=== PATIENT | male | born 1995 | race Caucasian/White ===

== ENCOUNTER → 2020-06-14 14:20 | Outpatient (BNVA) | payer MEDICAID, SELFPAY | PROVIDERS: PCP Internal Medicine; Referring Provider Internal Medicine; Visit Provider Nurse Practitioner Family | DX: K59.00 Constipation, unspecified (principal); K64.9 Unspecified hemorrhoids; R12 Heartburn | CPT/HCPCS: 99203 ==

== ENCOUNTER → 2020-10-22 15:29 | Outpatient (BNVA) | payer MEDICAID, SELFPAY | PROVIDERS: PCP Internal Medicine; Visit Provider Nurse Practitioner Family ==

== ENCOUNTER → 2020-11-05 13:49 | Outpatient (BNVA) | payer MEDICAID, SELFPAY | PROVIDERS: PCP Internal Medicine; Visit Provider Nurse Practitioner Family ==

== ENCOUNTER 2020-11-06 13:25 | Emergency (ER) | payer MEDICAID, SELFPAY ==
--- NOTE | ~2020-11-06 | CT_ITS ---
EXAMINATION: CT ABDOMEN AND PELVIS WITH CONTRAST CLINICAL INFORMATION: Pain left abdomen and flank. History constipation. COMPARISON: CT abdomen and pelvis noncontrast 09/29/2019 TECHNIQUE: Multidetector volumetric images were obtained from the superior aspect of the liver through the pubic symphysis following administration 85 mL of Omnipaque 350 intravenous contrast. Sagittal and coronal reformatted images were obtained on the technologist's workstation. Oral contrast: No This CT examination was performed using dose optimization techniques as appropriate, variously including the following: *Automated exposure control *Adjustment of mA and/or kV according to patient size (this includes techniques or standardized protocols for targeted exams where dose is matched to indication/reason for exam; i.e. extremities or head) *Use of iterative reconstruction technique DLP: 904 mGy-cm FINDINGS: LUNG BASES: The visualized lung bases are unremarkable. LIVER, GALLBLADDER, AND BILIARY TREE: The liver is normal in size, shape, and attenuation. No focal hepatic lesion or biliary ductal dilatation is present. The gallbladder is unremarkable with no evidence of radiopaque gallstones, gallbladder wall thickening, or obvious pericholecystic inflammatory changes. PANCREAS: Unremarkable. SPLEEN: Unremarkable. ADRENAL GLANDS: Unremarkable. KIDNEYS AND URETERS: The kidneys are normal in size, shape, and attenuation. No hydronephrosis, hydroureter, or calculi seen. No perinephric stranding. BLADDER: Unremarkable. GASTROINTESTINAL TRACT: There is no bowel obstruction or inflammatory changes in the bowel or mesentery. The appendix is normal. There is no ascites or fluid collection. ABDOMINAL WALL: No significant hernia is appreciated. LYMPH NODES: No lymphadenopathy. VASCULAR: Unremarkable. PELVIC VISCERA: Unremarkable. OSSEOUS STRUCTURES: No acute bony abnormality. 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 CT/CT abdomen pelvis w con IMPRESSION: 1. No hydronephrosis, urinary tract calculi, or perinephric stranding. 2. No bowel obstruction or inflammatory changes in bowel or mesentery. 3. Transitional vertebrae L5 with left hemisacralization. No acute bony abnormality.
[2020-11-06 13:51] VITALS: BP 130/79; PULSE 92; RESP 18; TEMP 36.8; O2SAT 97; BMI 32.3
[2020-11-06] MEDS: Ketorolac Tromethamine 30 MG/ML VIAL IVPUSH (14:55)
[2020-11-06] MEDS: 0.9 % Sodium Chloride 1,000 ML 999 ML IVCONT (14:55)
[2020-11-06 14:56] LABS: MANUAL DIFF FLAG NO
[2020-11-06 14:58] LABS: Basophils Percent Auto 0.3 % (0-2); Eosinophils Absolute Auto 0.1 X10*3/uL (0.0-0.4); Hematocrit 42.4 % (42-52); Imm Gran Abs Auto 0.01 X10*3/uL (0.00-0.03); Imm Gran Pct Auto 0.2 % (0.0-0.4); Lymphocytes Absolute Auto 1.4 X10*3/uL (1.2-4.9); Lymphocytes Percent Auto 23.2 % (20-40); Mean Corpuscular Hemoglobin 28.1 pg (27.0-33.0); Mean Corpuscular Volume 85.1 fL (80-98); Mean Platelet Volume 9.6 fL (9.4-12.4); Monocytes Absolute Auto 0.3 X10*3/uL (0.1-1.2); Monocytes Percent Auto 5.5 % (2-11); Neutrophils Absolute Auto 4.1 X10*3/uL (2.0-8.3); Neutrophils Percent Auto 69.8 % (45-73); Platelet Count 241 X10*3/uL (160-400); Red Blood Count 4.98 X10*6/uL (4.60-5.80); Red Cell Distribution Width 12.5 % (11.0-16.0); White Blood Count 5.8 X10*3/uL (4.8-10.8)
--- NOTE | 2020-11-06 14:58 | ED.ABDPAIN ---
HPI - Abdominal Pain General Chief Complaint: Abdominal Pain Stated Complaint: abdominal pain Time Seen by Provider: 11/06/20 13:56 Source: patient Mode of arrival: ambulatory Limitations: no limitations History of Present Illness HPI narrative: 25-year-old male with a past medical history of constipation and hemorrhoids being followed by GI presenting to the ED with complaints of left-sided flank/left side abdominal pain with distention over the past 4 days worse today. Reports he was able to have a bowel movement this morning. Denies any fevers, nausea/vomiting, radiation of the abdominal pain, dysuria, hematuria, diarrhea or constipation. Denies any other symptoms MD elicited complaint: abdominal pain Pertinent past history: constipation and other (Hemorrhoids) Onset (ago): day(s) (4 days worse today) Pain Consistency: now resolved Location: LLQ, L flank and suprapubic Severity: moderate Quality: aching Radiation: none Migration to: no migration Exacerbating factors: movement Relieving factors: nothing Associated symptoms: denies other symptoms Related Data Home Medications Medication Instructions Recorded Confirmed cholecalciferol (vitamin D3) 25 25 mcg PO DAILY 06/14/20 06/14/20 mcg (1,000 unit) capsule ibuprofen 600 mg tablet 600 mg PO BID tab 06/14/20 06/14/20 Previous Rx's Medication Instructions Recorded docusate sodium 100 mg capsule 100 mg PO BID PRN #30 cap 10/22/20 hydrocortisone 2.5 % topical cream [address] QID PRN #30 g 10/22/20 with perineal applicator methylcellulose (laxative) 500 mg 500 mg PO DAILY #30 tab 10/22/20 tablet linaclotide 145 mcg capsule 145 mcg PO DAILY #30 cap 11/05/20 cyclobenzaprine 10 mg PO Q8H #10 tab 11/06/20 naproxen 500 mg PO BID PRN #10 tab 11/06/20 Allergies Allergy/AdvReac Type Severity Reaction Status Date / Time No Known Allergies Allergy Verified 11/05/20 13:49 [No Known Allergies*] Review of Systems Review of Systems Constitutional : + Decreased appetite, + weight loss unsure amount, No Fever, No Chills, No Night Sweats, No Fatigue, NoMalaise ENT/Mouth: No ear pain, No sore throat, No Difficulty swallowing Cardiovascular : No Chest Pain, No SOB, No Dyspnea on Exertion, No Orthopnea, NoEdema, No Palpitations Respiratory : No Cough, No Sputum, No Wheezing, No Dyspnea Gastrointestinal : + Abdominal pain, No Nausea, No Vomiting, No Diarrhea, No Hematochezia, No Melena Genitourinary : No irregular bleeding, No Dysuria, No Urinary Frequency, No Hematuria,No Urinary Incontinence, No Urgency, No Flank Pain Musculoskeletal : No joint pain, No Myalgias, No Joint Swelling Skin : No Skin Lesions, No rash Neuro : No Weakness, No Numbness, No Paresthesias, No Loss of Consciousness, No Dizziness, No Headache Psych : No Social Issues, Heme/Lymph: No Bruising, No Bleeding,No Lymphadenopathy Endocrine : No Polyuria, No Polydipsia, No Temperature Intolerance Yes all other systems are reviewed and are negative Physical Exam Vital Signs: Vital Signs: Last Vital Signs Temp 98.2 F 11/06/20 13:51 Pulse 91 11/06/20 16:10 Resp 16 11/06/20 16:10 BP 145/72 H 11/06/20 16:10 Pulse Ox 100 11/06/20 16:10 Body Mass Index 32.3 vital signs have been reviewed as normal and appeared to be correct. Blood pressure normal. Heart rate normal. Respiration rate normal. Temperature normal. Oxygen saturation normal. Appearance: Alert. Oriented X3. No acute distress. Head: Normal external exam. Normocephalic. Eyes: PERRLA. EOMI. Conjunctiva and sclera normal. Eyelids normal. ENT: Pharynx normal. Uvula midline. Moist mucous membranes. Neck: Normal inspection. Neck supple. FROM. No adenopathy. No meningeal signs. CVS: Normal heart rate and rhythm. Heart sound normal. No murmurs noted. Pulses normal throughout. Respiratory: No respiratory distress. Painless inspiration. Breath sounds normal. No wheezes/rales/rhonchi noted. Chest nontender. No accessory muscle usage noted or decreased air movement noted. Abdomen: Soft and mild tenderness to palpation to left lower quadrant/left flank. Nondistended. No guarding. No rigidity. Bowel sounds normal in all 4 quadrants. No distention noted. No organomegaly noted. No visible injury noted. No rebound tenderness. Negative Rovsing sign. Negative obturator's sign. Negative psoas sign. Negative Bojorquez sign. Back: No CVA tenderness. Full range of motion noted. Skin: Skin warm and dry. Normal skin color. Normal skin turgor. No rashes/lesions/lacerations noted. Extremities: Extremities exhibit normal range of motion. Extremities nontender. Neuro: Oriented X 3. No motor deficit. No sensory deficit. Reflexes normal. Course Course Course Narrative: 14:15pm - 25-year-old male with a past medical history of constipation and hemorrhoids being followed by GI presenting to the ED with complaints of left-sided flank/left side abdominal pain with distention over the past 4 days worse today. - concern for diverticulitis versus kidney stones - Plan: Labs, CT scan of abd/pelvis c IV contrast, UA, provide symptomatic treatment with Toradol and IV fluids and re-evaluate. Reevaluation(s) Reevaluation #1: - labs all within normal limits. UA within normal limits. CT scan of abdomen and pelvis with IV contrast within normal limits no acute processes noted. Patient most likely muscular strain. Will DC home with symptomatic treatment along with instructions to return if any new or worsening symptoms to follow up with primary care provider and GI specialist. Patient understands agrees with this plan. Time: 16:56 [facility] - Abdominal Pain Medical Records Attestation: I reviewed the patient's medical records. Lab Data Attestation: I reviewed the patient's lab results. Result diagrams: 11/06/20 14:48 11/06/20 14:48 Labs: Lab Results 11/06/20 11/06/20 11/06/20 Range/Units 14:48 14:48 14:48 WBC 5.8 (4.8-10.8) X10*3/uL RBC 4.98 (4.60-5.80) X10*6/uL Hgb 14.0 (14.0-18.0) g/dl Hct 42.4 (42-52) % MCV 85.1 (80-98) fL MCH 28.1 (27.0-33.0) pg MCHC 33.0 (31.0-36.0) g/dl RDW 12.5 (11.0-16.0) % Plt Count 241 (160-400) X10*3/uL MPV 9.6 (9.4-12.4) fL Immature Gran % (Auto) 0.2 (0.0-0.4) % Neut % (Auto) 69.8 (45-73) % Lymph % (Auto) 23.2 (20-40) % Worth % (Auto) 5.5 (2-11) % Eos % (Auto) 1.0 (0-4) % Baso % (Auto) 0.3 (0-2) % Lymph # (Auto) 1.4 (1.2-4.9) X10*3/uL Worth # (Auto) 0.3 (0.1-1.2) X10*3/uL Eos # (Auto) 0.1 (0.0-0.4) X10*3/uL Baso # (Auto) 0.0 (0.0-0.2) X10*3/uL Abs Immat Gran (auto) 0.01 (0.00-0.03) X10*3/uL Absolute Neuts (auto) 4.1 (2.0-8.3) X10*3/uL Absolute Nucleated RBC 0.000 (0.0-0.012) X10*3/uL Nucleated RBC % (auto) 0.0 (0.0-0.2) /100WBC PT 12.1 (10.8-13.0) SEC INR 1.0 (0.9-1.1) Sodium 138 (135-145) mmol/L Potassium 4.5 (3.3-5.1) mmol/L Chloride 103 (96-108) mmol/L Carbon Dioxide 28 (22-29) mmol/L Anion Gap 12 (12-20) BUN 11 (9-16) mg/dL Creatinine 0.84 (0.5-1.4) mg/dL Estim Creat Clear Calc 175.6 Estimated GFR > 60 Random Glucose 90 (60-115) mg/dL Calcium 9.3 (8.4-10.2) mg/dL Magnesium 2.0 (1.6-2.6) mg/dL Total Bilirubin 0.5 (0.0-1.0) mg/dL Direct Bilirubin 0.2 (0.0-0.5) mg/dL AST 23 (5-37) U/L ALT 42 H (0-40) U/L Alkaline Phosphatase 74 (39-117) U/L Total Protein 7.5 (6.5-8.0) g/dL Albumin 4.4 (3.5-5.0) g/dL Urine Color Urine Appearance Urine pH (5.0-8.0) Ur Specific [place] (1.005-1.025) Urine Protein (NEG-TRACE) MG/DL Urine Glucose (UA) (NEG) MG/DL Urine Ketones (NEG) MG/DL Urine Blood (NEG) Urine Nitrite (NEG) Ur Leukocyte Esterase (NEG) 11/06/20 Range/Units 16:12 WBC (4.8-10.8) X10*3/uL RBC (4.60-5.80) X10*6/uL Hgb (14.0-18.0) g/dl Hct (42-52) % MCV (80-98) fL MCH (27.0-33.0) pg MCHC (31.0-36.0) g/dl RDW (11.0-16.0) % Plt Count (160-400) X10*3/uL MPV (9.4-12.4) fL Immature Gran % (Auto) (0.0-0.4) % Neut % (Auto) (45-73) % Lymph % (Auto) (20-40) % Worth % (Auto) (2-11) % Eos % (Auto) (0-4) % Baso % (Auto) (0-2) % Lymph # (Auto) (1.2-4.9) X10*3/uL Worth # (Auto) (0.1-1.2) X10*3/uL Eos # (Auto) (0.0-0.4) X10*3/uL Baso # (Auto) (0.0-0.2) X10*3/uL Abs Immat Gran (auto) (0.00-0.03) X10*3/uL Absolute Neuts (auto) (2.0-8.3) X10*3/uL Absolute Nucleated RBC (0.0-0.012) X10*3/uL Nucleated RBC % (auto) (0.0-0.2) /100WBC PT (10.8-13.0) SEC INR (0.9-1.1) Sodium (135-145) mmol/L Potassium (3.3-5.1) mmol/L Chloride (96-108) mmol/L Carbon Dioxide (22-29) mmol/L Anion Gap (12-20) BUN (9-16) mg/dL Creatinine (0.5-1.4) mg/dL Estim Creat Clear Calc Estimated GFR Random Glucose (60-115) mg/dL Calcium (8.4-10.2) mg/dL Magnesium (1.6-2.6) mg/dL Total Bilirubin (0.0-1.0) mg/dL Direct Bilirubin (0.0-0.5) mg/dL AST (5-37) U/L ALT (0-40) U/L Alkaline Phosphatase (39-117) U/L Total Protein (6.5-8.0) g/dL Albumin (3.5-5.0) g/dL Urine Color YELLOW Urine Appearance CLEAR Urine pH 7.0 (5.0-8.0) Ur Specific [place] 1.010 (1.005-1.025) Urine Protein NEG (NEG-TRACE) MG/DL Urine Glucose (UA) NEG (NEG) MG/DL Urine Ketones NEG (NEG) MG/DL Urine Blood NEG (NEG) Urine Nitrite NEG (NEG) Ur Leukocyte Esterase NEG (NEG) Imaging Data CT scan of abdomen and pelvis with IV contrast: Attestation: I personally reviewed and interpreted this imaging study as follows: Radiologist's impression: FINDINGS: LUNG BASES: The visualized lung bases are unremarkable. LIVER, GALLBLADDER, AND BILIARY TREE: The liver is normal in size, shape, and attenuation. No focal hepatic lesion or biliary ductal dilatation is present. The gallbladder is unremarkable with no evidence of radiopaque gallstones, gallbladder wall thickening, or obvious pericholecystic inflammatory changes. PANCREAS: Unremarkable. SPLEEN: Unremarkable. ADRENAL GLANDS: Unremarkable. KIDNEYS AND URETERS: The kidneys are normal in size, shape, and attenuation. No hydronephrosis, hydroureter, or calculi seen. No perinephric stranding. BLADDER: Unremarkable. GASTROINTESTINAL TRACT: There is no bowel obstruction or inflammatory changes in the bowel or mesentery. The appendix is normal. There is no ascites or fluid collection. ABDOMINAL WALL: No significant hernia is appreciated. LYMPH NODES: No lymphadenopathy. VASCULAR: Unremarkable. PELVIC VISCERA: Unremarkable. OSSEOUS STRUCTURES: No acute bony abnormality. 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 CT/CT abdomen pelvis w con IMPRESSION: 1. No hydronephrosis, urinary tract calculi, or perinephric stranding. 2. No bowel obstruction or inflammatory changes in bowel or mesentery. 3. Transitional vertebrae L5 with left hemisacralization. No acute bony abnormality. Discharge Plan Discharge Clinical Impression: Muscle spasm Patient Disposition: Home, Self-Care Instructions: Muscle Spasm (ED) Prescriptions: New cyclobenzaprine 10 mg tablet 10 mg PO Q8H Qty: 10 RF: 0 naproxen 500 mg tablet 500 mg PO BID PRN (Reason: pain) Qty: 10 RF: 0 No Action cholecalciferol (vitamin D3) 25 mcg (1,000 unit) capsule 25 mcg PO DAILY RF: 0 ibuprofen 600 mg tablet 600 mg PO BID RF: 0 Linzess 145 mcg capsule 145 mcg PO DAILY Qty: 30 RF: 2 hydrocortisone [Anusol-HC] 2.5 % cream with perineal applicator [address] QID PRN (Reason: hemorrhoids) Qty: 30 RF: 2 docusate sodium [Colace] 100 mg capsule 100 mg PO BID PRN (Reason: constipation) Qty: 30 RF: 2 Citrucel 500 mg tablet 500 mg PO DAILY Qty: 30 RF: 2 Referrals: Bridgette Werner MD [Primary Care Provider] - 2 days Stand Alone Forms: Work/School Release Print Language: [place] [facility] Past Medical History Attestation statement: The following information was validated with the patient. Medical History Constipation Heartburn Hemorrhoid Hemorrhoids Family History Family History Father Kidney stones Mother Family history of thyroid problem Social History Social History Household Members: Family Alcohol intake: never Smoking Status: Former smoker Smoked in Last 30 Days: No Use of substances other than those prescribed or required for medical reasons: No Advance Directives: Yes Advance Directives Information Provided: Yes Advance Directives on File: No Current occupational status: employed Current occupation: IT
[2020-11-06 15:02] LABS: Prothrombin Time 12.1 SEC (10.8-13.0)
[2020-11-06 15:28] LABS: Alanine Aminotransferase 42 U/L (0-40); Albumin Level 4.4 g/dL (3.5-5.0); Alkaline Phosphatase 74 U/L (39-117); Anion Gap 12 (12-20); Aspartate Amino Transferase 23 U/L (5-37); Bilirubin Direct 0.2 mg/dL (0.0-0.5); Bilirubin Total 0.5 mg/dL (0.0-1.0); Blood Urea Nitrogen 11 mg/dL (9-16); Calcium 9.3 mg/dL (8.4-10.2); Carbon Dioxide 28 mmol/L (22-29); Chloride 103 mmol/L (96-108); Creatinine Clr Calc Pharmacy 175.6; Estimated Glomerular Filt Rate > 60; Glucose Random 90 mg/dL (60-115); Potassium 4.5 mmol/L (3.3-5.1); Sodium 138 mmol/L (135-145); Total Protein 7.5 g/dL (6.5-8.0)
[2020-11-06] MEDS: iohexoL 350 MG/ML 100 ML INFUS..BTL IV (15:54)
[2020-11-06 16:10] VITALS: BP 145/72; PULSE 91; RESP 16; O2SAT 100
[2020-11-06 16:24] LABS: Glucose Urine UA NEG (NEG); Leukocyte Esterase Urine NEG (NEG); Nitrite Urine NEG (NEG); Urine Blood NEG (NEG); Urine Ketones NEG (NEG); Urine Protein NEG (NEG-TRACE)
[2020-11-06 16:25] LABS: Appearance Urine CLEAR; Color Urine YELLOW
== END 2020-11-06 17:24 | disposition home or self-care (01) ==
PROVIDERS: Physician Assistant Medical; Emergency Provider Emergency Medicine Emergency Medical Services; PCP Internal Medicine
DX: R10.32 Left lower quadrant pain (principal); M62.838 Other muscle spasm; Z79.899 Other long term (current) drug therapy; Z87.891 Personal history of nicotine dependence
CPT/HCPCS: 36415; 74177; 80048; 80076; 81003; 83735; 85025; 85610; 96365; 96375; 99284; J1885; Q9967

== ENCOUNTER → 2020-11-13 15:42 | Outpatient (BNVA) | payer MEDICAID, SELFPAY | PROVIDERS: PCP Internal Medicine; Visit Provider Surgery | DX: K64.4 Residual hemorrhoidal skin tags (principal); K64.8 Other hemorrhoids | CPT/HCPCS: 46600; 99202 ==

== ENCOUNTER 2020-11-26 13:38 | Outpatient (REF) | payer MEDICAID, SELFPAY ==
[2020-11-28 15:51] LABS: Transglutaminase Ab IgG 2 U/mL; Transglutaminase IgA 1 U/mL
== END 2020-11-26 13:39 | disposition home or self-care (01) ==
LOC: HO.LAB 13:38
PROVIDERS: PCP Internal Medicine; Visit Provider Nurse Practitioner Family
DX: R14.0 Abdominal distension (gaseous) (principal); K64.9 Unspecified hemorrhoids; K59.00 Constipation, unspecified; R12 Heartburn
CPT/HCPCS: 36415; 83516

== ENCOUNTER 2020-12-02 10:37 | Outpatient (REF) | payer MEDICAID, SELFPAY | END 2020-12-02 10:38 | disposition home or self-care (01) | LOC: HO.LNP 10:37 | PROVIDERS: Visit Provider Nurse Practitioner Family | DX: R14.0 Abdominal distension (gaseous) (principal); R12 Heartburn | CPT/HCPCS: 87338 ==

== ENCOUNTER → 2020-12-03 14:20 | Outpatient (BNVA) | payer MEDICAID, SELFPAY | PROVIDERS: PCP Internal Medicine; Visit Provider Nurse Practitioner Family ==

== ENCOUNTER → 2020-12-18 13:35 | Outpatient (BNVA) | payer MEDICAID, SELFPAY | PROVIDERS: PCP Internal Medicine; Visit Provider Nurse Practitioner Family ==

== ENCOUNTER 2021-12-10 00:50 | Emergency (ER) | payer MEDICAID, SELFPAY ==
[2021-12-10] VITALS (9 sets, daily range): BP systolic 101–136; BP diastolic 42–75; PULSE 90–134; RESP 15–24; TEMP 37.1–39.4; O2SAT 96–100; BMI 33.2
--- NOTE | ~2021-12-10 | XR_ITS ---
EXAMINATION: XR CHEST CLINICAL INFORMATION: Fever and cough. COMPARISON: None TECHNIQUE: 2 views of the chest were obtained. FINDINGS: Normal symmetric lung volumes. No parenchymal consolidation. No pleural effusion. No pneumothorax. Cardiomediastinal silhouette and pulmonary vascularity are within normal limits. No acute osseous abnormalities. XR/XR chest 2V IMPRESSION: No acute findings
--- NOTE | 2021-12-10 02:12 | ECG_ITS ---
Test Reason : TACHYCARDIA Blood Pressure : / mmHG Vent. Rate : 122 BPM Atrial Rate : 122 BPM P-R Int : 130 ms QRS Dur : 074 ms QT Int : 290 ms P-R-T Axes : 053 000 030 degrees QTc Int : 413 ms Sinus tachycardia Otherwise normal ECG No previous ECGs available Referred By: Sheri Olguin Electronically Signed By:Jt To
[2021-12-10 02:35] LABS: MANUAL DIFF FLAG NO
[2021-12-10] MEDS: 0.9 % Sodium Chloride 3,061.74 ML 3061.74 ML IV ×2 (02:35→03:14)
[2021-12-10 02:37] LABS: Basophils Percent Auto 0.1 % (0-2); Eosinophils Absolute Auto 0.1 X10*3/uL (0.0-0.4); Eosinophils Percent Auto 0.6 % (0-4); Hematocrit 44.2 % (42.0-52.0); Hemoglobin 14.9 g/dl (14.0-18.0); Imm Gran Abs Auto 0.03 X10*3/uL (0.00-0.03); Imm Gran Pct Auto 0.3 % (0.0-0.4); Lymphocytes Absolute Auto 0.9 X10*3/uL (1.2-4.9); Lymphocytes Percent Auto 9.5 % (20-40); Mean Corpuscular HGB Conc 33.7 g/dl (31.0-36.0); Mean Corpuscular Hemoglobin 28.1 pg (27.0-33.0); Mean Corpuscular Volume 83.2 fL (80.0-98.0); Mean Platelet Volume 10.1 fL (9.4-12.4); Monocytes Absolute Auto 0.4 X10*3/uL (0.1-1.2); Monocytes Percent Auto 4.3 % (2-11); Neutrophils Absolute Auto 8.4 x10*3/uL (2.0-8.3); Neutrophils Percent Auto 85.2 % (45-73); Platelet Count 243 X10*3/uL (160-400); Red Blood Count 5.31 X10*6/uL (4.60-5.80); Red Cell Distribution Width 12.5 % (11.0-16.0); White Blood Count 9.9 X10*3/uL (4.8-10.8)
[2021-12-10 02:43] LABS: Prothrombin Time 11.7 SEC (9.9-13.0)
[2021-12-10 02:46] LABS: Partial Thromboplastin Time 27.7 SEC (24.1-38.0)
[2021-12-10 02:52] LABS: Alanine Aminotransferase 22 U/L (0-40); Albumin Level 4.5 g/dL (3.5-5.0); Alkaline Phosphatase 82 U/L (39-117); Anion Gap 15 (12-20); Aspartate Amino Transferase 16 U/L (5-37); Bilirubin Direct 0.2 mg/dL (0.0-0.5); Bilirubin Total 0.6 mg/dL (0.0-1.0); Blood Urea Nitrogen 11 mg/dL (9-16); Calcium 10.1 mg/dL (8.4-10.2); Carbon Dioxide 22 mmol/L (22-29); Chloride 103 mmol/L (96-108); Creatinine Clr Calc Pharmacy 127.9; Estimated Glomerular Filt Rate > 60; Glucose Random 123 mg/dL (60-115); Lipase 13 U/L (8-78); Potassium 4.1 mmol/L (3.3-5.1); Sodium 136 mmol/L (135-145); Total Protein 8.2 g/dL (6.5-8.0)
[2021-12-10 02:54] LABS: Lactic Acid 2.5 mmol/L (0.5-2.0)
[2021-12-10 02:57] LABS: COVID-19 Test Negative (Negative); IDNOW Serial# 16C4AD1C; Influenza A Negative (Negative); Influenza B2 Negative (Negative)
--- NOTE | 2021-12-10 03:04 | PC.NURSE ---
Critical lab of lactic acid 2.5 reported to MIKE Chicas and Provider.
[2021-12-10] MEDS: Ketorolac Tromethamine 15 MG/ML VIAL IVPUSH (03:12)
[2021-12-10] MEDS: cefTRIAXone sodium 1 GM in 0.9 % Sodium Chloride 50 ML IV (03:13)
[2021-12-10] MEDS: Acetaminophen 325 MG TABLET 975 MG PO (03:13)
[2021-12-10 04:33] LABS: Reflex Lactate? Lactic Acid Added
[2021-12-10 04:40] LABS: Appearance Urine CLEAR; Color Urine YELLOW; Glucose Urine UA NEG (NEG); Leukocyte Esterase Urine NEG (NEG); Nitrite Urine NEG (NEG); Urine Blood NEG (NEG); Urine Ketones NEG (NEG); Urine Protein NEG (NEG-TRACE)
--- NOTE | 2021-12-10 05:06 | PC.NURSE ---
pt a&o, no sob or chest pain at this time. labs, Ua and Iv placed. Medicated per Oct. pt report feeling much better after medication. pt is now using cell phone and more alert. no sign of distress at this time. Will continue to monitor. Report of MIKE Chicas
--- NOTE | 2021-12-10 06:43 | ED_ITS ---
HPI - General Adult General Chief complaint: Nausea/Vomiting/Diarrhea Stated complaint: SOB Time Seen by Provider: 12/10/21 02:12 Source: patient and family (Father) Mode of arrival: ambulatory Limitations: no limitations History of Present Illness HPI narrative: 26-year-old male who presents emergency department for evaluation of fever, chills, nausea, vomiting, headache, neck pain, body aches and rectal bleeding from hemorrhoids x2 days. The patient states that he has been feeling hot and cold. He states that he has had uncontrolled shaking. He states he is feeling very weak and fatigued. The patient had nausea with 2 episodes of emesis yesterday 1 episode of emesis today. He states that he has a sore throat, he has a burning sensation in his chest which is [id number] in intensity and is worse with breathing. He points to his sternum when asked to localize the pain. He complains of shortness of breath. Had no diarrhea. He does have a history of hemorrhoids and has had rectal bleeding which she believes is consistent with his hemorrhoids. The patient has been vaccinated for COVID-19. He has received a [employer] x2 shots and a booster. Related Data Home Medications Medication Instructions Recorded Confirmed cholecalciferol (vitamin D3) 25 25 mcg PO DAILY 06/14/20 11/13/20 mcg (1,000 unit) capsule Previous Rx's Medication Instructions Recorded hydrocortisone 2.5 % topical cream 1 appl IA QID PRN #30 g 10/22/20 with perineal applicator (Anusol-HC) hydrocortisone acetate 25 mg 25 mg IA BID #12 ea 11/13/20 rectal suppository (Anusol-HC) menthol 0.44 %-zinc oxide 20.6 % 1 appl TOPICAL QID PRN #71 g 11/13/20 topical ointment (Calmoseptine) omeprazole 20 mg capsule,delayed 20 mg PO DAILY #30 cap 12/03/20 release simethicone 125 mg capsule (Gas 125 mg PO TID-QID PRN #120 cap 12/03/20 Relief (simethicone)) lactobacillus combination no.8 3 3,000 mmu cells PO DAILY #30 cap 12/18/20 billion cell capsule (Adult Probiotic) magnesium 200 mg tablet 200 mg PO DAILY #30 tab 12/18/20 ondansetron 4 mg disintegrating 4 mg PO Q6-8H PRN #14 tab 12/10/21 tablet Allergies Allergy/AdvReac Type Severity Reaction Status Date / Time No Known Allergies Allergy Verified 12/18/20 13:35 [No Known Allergies*] Review of Systems Review of Systems: Yes all other systems are reviewed and are negative [facility] Past Medical History Medical History Abdominal bloating Constipation Heartburn Hemorrhoid Hemorrhoids Internal and external hemorrhoids without complication Family History Family History Father Kidney stones Mother Family history of thyroid problem Maternal Aunt Breast cancer Social History Social History Household Members: Family Alcohol intake: current Alcohol intake frequency: does not drink Advance Directives: No Current occupational status: employed Current occupation: IT Physical Exam ED Vital Signs: Vital Signs - 24 hr 12/10/21 01:17 12/10/21 01:21 12/10/21 02:07 Temperature 99 F 98.7 F 103.0 F H Pulse Rate 134 H 120 H 113 H Respiratory Rate 24 H 21 H 24 H Blood Pressure 136/73 129/75 132/72 Pulse Oximetry 100 100 100 12/10/21 02:11 12/10/21 02:17 12/10/21 03:20 Temperature 103.0 F H 102.9 F H Pulse Rate 118 H 110 H Respiratory Rate 20 23 H Blood Pressure 136/63 Pulse Oximetry 100 100 12/10/21 03:45 12/10/21 06:06 Temperature 100.8 F H 98.8 F Pulse Rate 115 H Respiratory Rate 15 Blood Pressure 115/54 L Pulse Oximetry 100 BMI result Body Mass Index 33.2 Const Other: Awake, alert male, he appears to be anxious, he answers all questions appropriately. HENMT Head: Yes normocephalic and Yes atraumatic Ears: external ears normal General nose exam: Normal external nose present Face and sinus: Yes normal facial exam Mouth: Normal oral and palatal mucosa present Throat: Yes posterior oropharynx normal Eyes General: appearance normal, both eyes and all related structures Pupils: Equal, round and reactive pupils present Neck Neck: Yes normal visual inspection, Yes no lymphadenopathy, Yes trachea midline and Yes supple Chest Chest palpation & inspection: normal inspection of the chest and normal palpation of entire chest wall Resp Effort & Inspection: normal respiratory effort and able to speak in complete sentences Auscultation: clear to auscultation bilaterally Cardio Rate: regular rate Rhythm: regular rhythm Heart sounds: S1 normal heart sound present, S2 normal heart sound present and no murmurs GI Inspection: Yes normal to inspection Palpation (GI): Soft to palpation, nontender and no guarding Auscultation: normal bowel sounds Rectal Exam - Male: Yes Visual inspection abnormal (Small, bleeding external hemorrhoid) General: Yes no CVA tenderness Back/Spine/Pelvis Back: no CVA tenderness Skin General skin exam: no rashes or lesions noted Neuro Cranial nerves: Yes CN's II-XII intact bilaterally and Yes Equal, round and reactive pupils present Cognition (Neuro): normal cognition Motor exam (neuro): 5/5 motor strength present throughout Extrem General: Yes normal to inspection Psych Appearance: grossly normal Speech and movement: Normal speech and movement present Affect: normal affect Attitude: cooperative Thought process: Normal thought process present Thought content: Normal thought content present Course Course Course Narrative: 26-year-old male who presents emergency department for evaluation of 2 days of viral-like syndrome with symptoms including fever, chills, sore throat, chest pain, shortness of breath, nausea, vomiting weakness and fatigue. Vital signs revealed an elevated heart rate of 134, elevated respiratory rate of 24. Vital signs were otherwise unremarkable. Patient did appear to be very anxious his exam was otherwise unremarkable as well. Laboratory evaluation was ordered. Patient was treated with acetaminophen 975 mg orally, Toradol 15 mg IV, normal saline 30 cc bolus (3061 cc). He was also given ceftriaxone 1 g IV. 0653: Laboratory evaluation: CBC was normal. Glucose elevated 123. Lactate elevated 2.3. COVID-19 influenza were negative. Chest x-ray revealed no pneumonia. Patient's presentation is consistent with acute viral illness. The patient did feel significantly better after the above treatment. The patient was started on Zosyn ODT 4 mg every 6-8 hours as needed for nausea and vomiting. He is advised to take Tylenol and ibuprofen. Is also started on Pepcid for his heartburn symptoms. He was she given printed and verbal instructions and discharged home. Medical Decision Making Lab Data Result diagrams: 12/10/21 02:27 12/10/21 02:28 Labs: Lab Results 12/10/21 12/10/21 12/10/21 Range/Units 02:27 02:27 02:27 WBC 9.9 (4.8-10.8) X10*3/uL RBC 5.31 (4.60-5.80) X10*6/uL Hgb 14.9 (14.0-18.0) g/dl Hct 44.2 (42.0-52.0) % MCV 83.2 (80.0-98.0) fL MCH 28.1 (27.0-33.0) pg MCHC 33.7 (31.0-36.0) g/dl RDW 12.5 (11.0-16.0) % Plt Count 243 (160-400) X10*3/uL MPV 10.1 (9.4-12.4) fL Immature Gran % (Auto) 0.3 (0.0-0.4) % Neut % (Auto) 85.2 H (45-73) % Lymph % (Auto) 9.5 L (20-40) % Pike % (Auto) 4.3 (2-11) % Eos % (Auto) 0.6 (0-4) % Baso % (Auto) 0.1 (0-2) % Lymph # (Auto) 0.9 L (1.2-4.9) X10*3/uL Pike # (Auto) 0.4 (0.1-1.2) X10*3/uL Eos # (Auto) 0.1 (0.0-0.4) X10*3/uL Baso # (Auto) 0.0 (0.0-0.2) X10*3/uL Abs Immat Gran (auto) 0.03 (0.00-0.03) X10*3/uL Absolute Neuts (auto) 8.4 H (2.0-8.3) x10*3/uL Absolute Nucleated RBC 0.000 (0.0-0.012) X10*3/uL Nucleated RBC % (auto) 0.0 (0.0-0.2) /100WBC PT (9.9-13.0) SEC INR (0.9-1.1) APTT (24.1-38.0) SEC Sodium (135-145) mmol/L Potassium (3.3-5.1) mmol/L Chloride (96-108) mmol/L Carbon Dioxide (22-29) mmol/L Anion Gap (12-20) BUN (9-16) mg/dL Creatinine (0.5-1.4) mg/dL Estim Creat Clear Calc Estimated GFR Random Glucose (60-115) mg/dL Lactic Acid (0.5-2.0) mmol/L Lactic Acid F/U @ 2Hr (0.5-2.0) mmol/L Calcium (8.4-10.2) mg/dL Total Bilirubin (0.0-1.0) mg/dL Direct Bilirubin (0.0-0.5) mg/dL AST (5-37) U/L ALT (0-40) U/L Alkaline Phosphatase (39-117) U/L Total Protein (6.5-8.0) g/dL Albumin (3.5-5.0) g/dL Lipase (8-78) U/L Urine Color Urine Appearance Urine pH (5.0-8.0) Ur Specific [place] (1.005-1.025) Urine Protein (NEG-TRACE) MG/DL Urine Glucose (UA) (NEG) MG/DL Urine Ketones (NEG) MG/DL Urine Blood (NEG) Urine Nitrite (NEG) Ur Leukocyte Esterase (NEG) COVID-19 (ZULY) Negative (Negative) COVID-19 Clin Com See Note Influenza Type A (MAT) Negative (Negative) Influenza Type B (MAT) Negative (Negative) Influenza A & B Note See Note 12/10/21 12/10/21 12/10/21 Range/Units 02:28 02:28 02:28 WBC (4.8-10.8) X10*3/uL RBC (4.60-5.80) X10*6/uL Hgb (14.0-18.0) g/dl Hct (42.0-52.0) % MCV (80.0-98.0) fL MCH (27.0-33.0) pg MCHC (31.0-36.0) g/dl RDW (11.0-16.0) % Plt Count (160-400) X10*3/uL MPV (9.4-12.4) fL Immature Gran % (Auto) (0.0-0.4) % Neut % (Auto) (45-73) % Lymph % (Auto) (20-40) % Pike % (Auto) (2-11) % Eos % (Auto) (0-4) % Baso % (Auto) (0-2) % Lymph # (Auto) (1.2-4.9) X10*3/uL Pike # (Auto) (0.1-1.2) X10*3/uL Eos # (Auto) (0.0-0.4) X10*3/uL Baso # (Auto) (0.0-0.2) X10*3/uL Abs Immat Gran (auto) (0.00-0.03) X10*3/uL Absolute Neuts (auto) (2.0-8.3) x10*3/uL Absolute Nucleated RBC (0.0-0.012) X10*3/uL Nucleated RBC % (auto) (0.0-0.2) /100WBC PT 11.7 (9.9-13.0) SEC INR 1.0 (0.9-1.1) APTT 27.7 (24.1-38.0) SEC Sodium 136 (135-145) mmol/L Potassium 4.1 (3.3-5.1) mmol/L Chloride 103 (96-108) mmol/L Carbon Dioxide 22 (22-29) mmol/L Anion Gap 15 (12-20) BUN 11 (9-16) mg/dL Creatinine 1.03 (0.5-1.4) mg/dL Estim Creat Clear Calc 127.9 Estimated GFR > 60 Random Glucose 123 H D (60-115) mg/dL Lactic Acid 2.5 H* (0.5-2.0) mmol/L Lactic Acid F/U @ 2Hr (0.5-2.0) mmol/L Calcium 10.1 D (8.4-10.2) mg/dL Total Bilirubin 0.6 (0.0-1.0) mg/dL Direct Bilirubin 0.2 (0.0-0.5) mg/dL AST 16 (5-37) U/L ALT 22 (0-40) U/L Alkaline Phosphatase 82 (39-117) U/L Total Protein 8.2 H (6.5-8.0) g/dL Albumin 4.5 (3.5-5.0) g/dL Lipase 13 (8-78) U/L Urine Color Urine Appearance Urine pH (5.0-8.0) Ur Specific [place] (1.005-1.025) Urine Protein (NEG-TRACE) MG/DL Urine Glucose (UA) (NEG) MG/DL Urine Ketones (NEG) MG/DL Urine Blood (NEG) Urine Nitrite (NEG) Ur Leukocyte Esterase (NEG) COVID-19 (ZULY) (Negative) COVID-19 Clin Com Influenza Type A (MAT) (Negative) Influenza Type B (MAT) (Negative) Influenza A & B Note 12/10/21 12/10/21 Range/Units 04:36 04:44 WBC (4.8-10.8) X10*3/uL RBC (4.60-5.80) X10*6/uL Hgb (14.0-18.0) g/dl Hct (42.0-52.0) % MCV (80.0-98.0) fL MCH (27.0-33.0) pg MCHC (31.0-36.0) g/dl RDW (11.0-16.0) % Plt Count (160-400) X10*3/uL MPV (9.4-12.4) fL Immature Gran % (Auto) (0.0-0.4) % Neut % (Auto) (45-73) % Lymph % (Auto) (20-40) % Pike % (Auto) (2-11) % Eos % (Auto) (0-4) % Baso % (Auto) (0-2) % Lymph # (Auto) (1.2-4.9) X10*3/uL Pike # (Auto) (0.1-1.2) X10*3/uL Eos # (Auto) (0.0-0.4) X10*3/uL Baso # (Auto) (0.0-0.2) X10*3/uL Abs Immat Gran (auto) (0.00-0.03) X10*3/uL Absolute Neuts (auto) (2.0-8.3) x10*3/uL Absolute Nucleated RBC (0.0-0.012) X10*3/uL Nucleated RBC % (auto) (0.0-0.2) /100WBC PT (9.9-13.0) SEC INR (0.9-1.1) APTT (24.1-38.0) SEC Sodium (135-145) mmol/L Potassium (3.3-5.1) mmol/L Chloride (96-108) mmol/L Carbon Dioxide (22-29) mmol/L Anion Gap (12-20) BUN (9-16) mg/dL Creatinine (0.5-1.4) mg/dL Estim Creat Clear Calc Estimated GFR Random Glucose (60-115) mg/dL Lactic Acid (0.5-2.0) mmol/L Lactic Acid F/U @ 2Hr 2.0 (0.5-2.0) mmol/L Calcium (8.4-10.2) mg/dL Total Bilirubin (0.0-1.0) mg/dL Direct Bilirubin (0.0-0.5) mg/dL AST (5-37) U/L ALT (0-40) U/L Alkaline Phosphatase (39-117) U/L Total Protein (6.5-8.0) g/dL Albumin (3.5-5.0) g/dL Lipase (8-78) U/L Urine Color YELLOW Urine Appearance CLEAR Urine pH 8.0 (5.0-8.0) Ur Specific [place] 1.020 (1.005-1.025) Urine Protein NEG (NEG-TRACE) MG/DL Urine Glucose (UA) NEG (NEG) MG/DL Urine Ketones NEG (NEG) MG/DL Urine Blood NEG (NEG) Urine Nitrite NEG (NEG) Ur Leukocyte Esterase NEG (NEG) COVID-19 (ZULY) (Negative) COVID-19 Clin Com Influenza Type A (MAT) (Negative) Influenza Type B (MAT) (Negative) Influenza A & B Note Discharge Plan Discharge Clinical Impression: Acute viral syndrome, Vomiting, Acute dehydration, Fever Patient Disposition: Home, Self-Care Instructions: Viral Syndrome (ED) Additional Instructions: Your laboratory evaluation was unremarkable. Your urine test was unremarkable. Your COVID-19 and influenza tests were negative. Your chest x-ray was unremarkable. Your symptoms are consistent with a viral illness. Take ibuprofen 200 mg pills, 3 pills every 6 hours as needed for pain or fever Take Tylenol (acetaminophen) 500 mg pills, 2 pills every 4 to 6 hours as needed for pain or fever Take Zofran ODT 4 mg pills, 1 pill dissolved in your mouth every 8 hours as needed for nausea and vomiting. For GERD/heartburn take Pepcid (famotidine) 20 mg pills once a day for 1 month. Follow-up with your doctor in 2 days. Please return to the emergency department if your symptoms get worse or if you develop any symptoms that are concerning to you. Please see the work note. Prescriptions: New ondansetron 4 mg tablet,disintegrating 4 mg PO Q6-8H PRN (Reason: nausea and vomiting) Qty: 14 0RF No Action cholecalciferol (vitamin D3) 25 mcg (1,000 unit) capsule 25 mcg PO DAILY 0RF hydrocortisone [Anusol-HC] 2.5 % cream with perineal applicator 1 appl IA QID PRN (Reason: hemorrhoids) Qty: 30 2RF simethicone [Gas Relief (simethicone)] 125 mg capsule 125 mg PO TID-QID PRN (Reason: abdominal distention) Qty: 120 2RF omeprazole 20 mg capsule,delayed release(DR/EC) 20 mg PO DAILY Qty: 30 3RF Calmoseptine 0.44-20.6 % ointment 1 appl topical QID PRN (Reason: skin irritation) Qty: 71 0RF hydrocortisone acetate [Anusol-HC] 25 mg suppository 25 mg IA BID Qty: 12 3RF Adult Probiotic 3 billion cell capsule 3,000 mmu cells PO DAILY Qty: 30 2RF Rx Instructions: administer with a meal magnesium 200 mg tablet 200 mg PO DAILY Qty: 30 3RF Stand Alone Forms: Work/School Release
== END 2021-12-10 07:05 | disposition home or self-care (01) ==
PROVIDERS: Nurse Practitioner Family; Emergency Provider Emergency Medicine Emergency Medical Services
DX: B34.9 Viral infection, unspecified (principal); R11.2 Nausea with vomiting, unspecified; R06.02 Shortness of breath; E86.0 Dehydration; R50.9 Fever, unspecified; Z20.822 Contact with and (suspected) exposure to COVID-19; Z79.899 Other long term (current) drug therapy
CPT/HCPCS: 36415; 71046; 80048; 80076; 81003; 83605; 83690; 85025; 85610; 85730; 87040; 87502; 87635; 93005; 96361; 96374; 96375; 99285; J0696; J1885

== ENCOUNTER 2021-12-24 10:43 | Outpatient (REF) | payer MEDICAID, SELFPAY ==
--- NOTE | ~2021-12-24 | MM_ITS ---
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 Bilateral retroareolar fullness noted on clinical exam. No discharge. No erythema. No prior breast imaging. COMPARISON: None (current study represents initial baseline exam). TECHNIQUE: Digital breast tomosynthesis is performed in both the craniocaudal and mediolateral oblique views along with computer-aided detection (CAD). Synthesized 2D images are generated from the tomosynthesis. Ultrasound bilateral breast ultrasound is performed targeted to the retroareolar and periareolar regions. Grayscale imaging and color Doppler are performed without and with harmonics. FINDINGS: There are scattered areas of fibroglandular density (ACR BI-RADS breast composition Category b). There are scattered bilateral stromal densities likely related to mild bilateral gynecomastia. Some of the benign densities could also be related to the prior procedure. There are no prior studies for comparison. There is no mass or architectural abnormality. No skin thickening or coarsening of the stromal markings. The axilla are unremarkable. Ultrasound demonstrates no cystic or solid mass or architectural abnormality. No focal duct ectasia. No skin thickening or edema tracking in soft tissue planes. Results are discussed with the patient at time of visit. MM/MM tomosynthesis diagnostic BI IMPRESSION: -No mammographic or ultrasound evidence of malignancy or inflammatory changes. -Probable mild underlying gynecomastia and minor post surgical change. ASSESSMENT: BI-RADS 2: Benign RECOMMENDATION: Patient should be managed based on the clinical impression. If clinically indicated, further evaluation may be considered with surgical consult. Decision to proceed with biopsy should be based on clinical grounds and degree of clinical concern.
== END 2021-12-24 10:44 | disposition home or self-care (01) ==
LOC: HO.MAMMO 10:43
PROVIDERS: Visit Provider Internal Medicine
DX: N62 Hypertrophy of breast (principal)
CPT/HCPCS: 76642; 77062; 77066

== ENCOUNTER 2022-06-03 16:25 | Emergency (ER) | payer MEDICAID, SELFPAY ==
--- NOTE | ~2022-06-03 | XR_ITS ---
EXAMINATION: XR SOFT TISSUE NECK CLINICAL INDICATION: Question foreign body COMPARISON: None TECHNIQUE: 2 views of the soft tissue neck were obtained. FINDINGS: Soft tissue films of the neck demonstrate a normal larynx, pharynx and upper trachea. No soft tissue swelling or opaque foreign body is demonstrated. XR/XR soft tissue neck IMPRESSION: No radiopaque foreign body identified.
--- NOTE | ~2022-06-03 | XR_ITS ---
EXAMINATION: XR CHEST CLINICAL INFORMATION: Foreign object COMPARISON: 12/10/2021 and prior TECHNIQUE: Frontal view of the chest was obtained. FINDINGS: No radiopaque foreign body identified. Further information as to the etiology of the aspirated or ingested foreign body may be helpful. Clear lungs without consolidation or atelectasis. Normal lung volumes. Normal heart and mediastinum without mass. Nonobstructive gas pattern. No rib fracture. XR/XR chest 1V IMPRESSION: No radiopaque foreign body identified.
[2022-06-03 17:12] VITALS: BP 128/76; PULSE 90; RESP 16; TEMP 36.3; O2SAT 100; BMI 31.6
--- NOTE | 2022-06-03 20:33 | ED.GENADULT ---
HPI - General Adult General Chief complaint: Skin/Abscess/Foreign Body Stated complaint: swalled Metal piece by mistake feels n throat Time Seen by Provider: 06/03/22 19:42 Source: patient Mode of arrival: ambulatory Limitations: no limitations History of Present Illness HPI narrative: patient presents emergency department for evaluation of a possible foreign body to the esophagus. He states that today he was drinking an energy drink and he felt as though there was something metal or solid within the can. He attempted to cough this out but feels that it has become lodged within his throat. Reporting a foreign body sensation that is uncomfortable. He states he has been able to even drink after this event without coughing, gagging, or vomiting. No chest pain, Or shortness of breath. Related Data Home Medications Medication Instructions Recorded Confirmed cholecalciferol (vitamin D3) 25 25 mcg PO DAILY 06/14/20 11/13/20 mcg (1,000 unit) capsule Previous Rx's Medication Instructions Recorded hydrocortisone 2.5 % topical cream 1 appl RI QID PRN hemorrhoids #30 10/22/20 with perineal applicator grams (Anusol-HC) hydrocortisone acetate 25 mg 25 mg RI BID for pain in anus #12 11/13/20 rectal suppository (Anusol-HC) ea menthol 0.44 %-zinc oxide 20.6 % 1 appl topical QID PRN skin 11/13/20 topical ointment (Calmoseptine) irritation #71 grams omeprazole 20 mg capsule,delayed 20 mg PO DAILY #30 caps 12/03/20 release simethicone 125 mg capsule (Gas 125 mg PO TID-QID PRN abdominal 12/03/20 Relief (simethicone)) distention #120 caps lactobacillus combination no.8 3 3,000 mmu cells PO DAILY #30 caps 12/18/20 billion cell capsule (Adult Probiotic) magnesium 200 mg tablet 200 mg PO DAILY #30 tabs 12/18/20 ondansetron 4 mg disintegrating 4 mg PO Q6-8H PRN nausea and 12/10/21 tablet vomiting #14 tabs Allergies Allergy/AdvReac Type Severity Reaction Status Date / Time No Known Allergies Allergy Verified 06/03/22 17:14 [No Known Allergies*] Review of Systems Review of Systems: Constitutional: No weight loss, fever, chills, weakness or fatigue. Skin: No rash or itching. Cardiovascular: No chest pain Respiratory: No shortness of breath, cough or sputum production. Gastrointestinal: No nausea, vomiting or diarrhea. No abdominal pain Genitourinary: No burning micturition. No urinary frequency or incontinence. Yes all other systems are reviewed and are negative [facility] Past Medical History Attestation statement: The following information was validated with the patient. Source: old records reviewed Medical History Abdominal bloating Constipation Heartburn Hemorrhoid Hemorrhoids Internal and external hemorrhoids without complication Family History Family History Father Kidney stones Mother Family history of thyroid problem Maternal Aunt Breast cancer Social History Social History Household Members: Family Alcohol intake: current Alcohol intake frequency: does not drink Advance Directives: No Current occupational status: employed Current occupation: IT Physical Exam ED Vital Signs: Vital Signs - 24 hr 06/03/22 17:12 Temperature 97.3 F Pulse Rate 90 Respiratory Rate 16 Blood Pressure 128/76 Pulse Oximetry 100 Oxygen Delivery Method Room Air BMI result Body Mass Index 31.6 Vital signs have been reviewed as normal and appeared to be correct. Blood pressure normal.? Heart rate normal.? Respiration rate normal. Temperature normal.? Oxygen saturation normal. Appearance: Alert.?Oriented to person, place and time. No acute distress.?Normal affect. Eyes: Pupils equal, round and reactive to light.? ENT: Pharynx normal.?? Neck: Normal inspection.? Neck supple.?? CVS: Heart sounds normal. Normal heart rate and rhythm.? Pulses normal.?? Respiratory: No respiratory distress.? Lung sounds clear to auscultation bilaterally?? Abdomen: Soft and non-tender. Normoactive bowel sounds. Skin: Skin warm and dry.? Normal skin color.? Extremities: No lower extremity edema.? Neuro: Moves all extremities spontaneously. Sensation intact bilaterally. No focal neuro deficits. Ambulates with normal steady gait. Course Course Course Narrative: Patient is a 26-year-old male with a past medical history of acid reflux presents emergency department for evaluation of a possible foreign body to his throat. Initial x-ray imaging obtained from triage reveals an unremarkable chest x-ray. Will obtain XR of the soft tissue neck to evaluate for possible foreign body. Patient is in no apparent distress, he is speaking clear full sentences, tolerating oral intake without any complication. Vital signs are stable. Reevaluation(s) Reevaluation #1: XR of the soft tissue neck reveals no radiopaque foreign body identified. discussed plan of care for discharge home, outpatient follow-up with primary care provider. Reviewed worsens and symptoms to return back to emergency department for. All questions were answered, patient discharged home in stable condition. Time: 21:32 Medical Decision Making Medical Records Medical records reviewed: Yes I reviewed the patient's medical records. Imaging Data Chest x-ray: Radiologist's impression: XR/XR chest 1V IMPRESSION: No radiopaque foreign body identified. neck XR: Radiologist's impression: XR/XR soft tissue neck IMPRESSION: No radiopaque foreign body identified. Discharge Plan Discharge Clinical Impression: Feeling of foreign body in throat Patient Disposition: Home, Self-Care Additional Instructions: As we discussed, the x-rays did not reveal any evidence of the radiopaque foreign body. You should return to emergency department with any new or worsening symptoms or concerns. This may include but is not limited to worsening pain, inability to tolerate drinking or eating, gagging, coughing, vomiting, chest pain, shortness of breath, difficulty breathing. Follow-up with your primary care provider as needed. Prescriptions: No Action ondansetron 4 mg tablet,disintegrating 4 mg PO Q6-8H PRN (Reason: nausea and vomiting) Qty: 14 0RF cholecalciferol (vitamin D3) 25 mcg (1,000 unit) capsule 25 mcg PO DAILY hydrocortisone [Anusol-HC] 2.5 % cream with perineal applicator 1 appl RI QID PRN (Reason: hemorrhoids) Qty: 30 2RF simethicone [Gas Relief (simethicone)] 125 mg capsule 125 mg PO TID-QID PRN (Reason: abdominal distention) Qty: 120 2RF omeprazole 20 mg capsule,delayed release(DR/EC) 20 mg PO DAILY Qty: 30 3RF Calmoseptine 0.44-20.6 % ointment 1 appl topical QID PRN (Reason: skin irritation) Qty: 71 0RF hydrocortisone acetate [Anusol-HC] 25 mg suppository 25 mg RI BID Qty: 12 3RF Adult Probiotic 3 billion cell capsule 3,000 mmu cells PO DAILY Qty: 30 2RF Rx Instructions: administer with a meal magnesium 200 mg tablet 200 mg PO DAILY Qty: 30 3RF
== END 2022-06-03 21:44 | disposition home or self-care (01) ==
PROVIDERS: Emergency Provider Emergency Medicine; PCP Internal Medicine
DX: R09.89 Other specified symptoms and signs involving the circulatory and respiratory systems (principal); M54.2 Cervicalgia; R06.02 Shortness of breath; Z79.899 Other long term (current) drug therapy
CPT/HCPCS: 70360; 71045; 99282; 99283

== ENCOUNTER 2023-07-15 14:16 | Outpatient (REF) | payer MEDICAID, SELFPAY ==
[2023-07-17 17:04] LABS: TS Negative Control Passed; TS Panel A 0; TS Panel B 0; TS Positive Control Passed; TSpotTB Negative (Negative)
== END 2023-07-15 14:17 | disposition home or self-care (01) ==
LOC: HO.CHCLDS 14:16
PROVIDERS: Visit Provider Internal Medicine
DX: Z11.1 Encounter for screening for respiratory tuberculosis (principal)
CPT/HCPCS: 36415; 86481

== ENCOUNTER 2023-08-10 13:05 | Outpatient (REF) | payer MEDICAID, SELFPAY ==
[2023-08-10 14:49] LABS: Hematocrit 42.6 % (42.0-52.0); Hemoglobin 14.1 g/dl (14.0-18.0); Mean Corpuscular HGB Conc 33.1 g/dl (31.0-36.0); Mean Corpuscular Hemoglobin 28.5 pg (27.0-33.0); Mean Corpuscular Volume 86.1 fL (80.0-98.0); Mean Platelet Volume 10.3 fL (9.4-12.4); Platelet Count 260 X10*3/uL (160-400); Red Blood Count 4.95 X10*6/uL (4.60-5.80); Red Cell Distribution Width 12.7 % (11.0-16.0)
[2023-08-10 15:23] LABS: Alanine Aminotransferase 25 U/L (0-40); Alkaline Phosphatase 85 U/L (39-117); Anion Gap 11 (12-20); Aspartate Amino Transferase 23 U/L (5-37); Bilirubin Total 0.6 mg/dL (0.0-1.0); Blood Urea Nitrogen 8 mg/dL (9-16); Calcium 9.2 mg/dL (8.4-10.2); Carbon Dioxide 26 mmol/L (22-29); Chloride 108 mmol/L (96-108); Estimated Glomerular Filt Rate > 60; Glucose Random 80 mg/dL (60-115); Sodium 141 mmol/L (135-145); TSH reflex Free T4 1.53 uIU/mL (0.32-4.0); Total Protein 7.4 g/dL (6.5-8.0)
[2023-08-14 14:53] LABS: Testosterone, Total 206 ng/dL (250-1100)
== END 2023-08-10 13:06 | disposition home or self-care (01) ==
LOC: HO.CHCLDS 13:05
PROVIDERS: Visit Provider Internal Medicine
DX: E66.9 Obesity, unspecified (principal); R53.83 Other fatigue
CPT/HCPCS: 36415; 80053; 84403; 84443; 85027

== ENCOUNTER 2023-08-17 09:03 | Outpatient (REF) | payer MEDICAID, SELFPAY ==
[2023-08-27 20:43] LABS: Testosterone, Free 68.3 pg/mL (35.0-155.0); Testosterone, Total 237 ng/dL (250-1100)
== END 2023-08-17 09:04 | disposition home or self-care (01) ==
LOC: HO.CHCLDS 09:03
PROVIDERS: Visit Provider Internal Medicine
DX: R79.89 Other specified abnormal findings of blood chemistry (principal)
CPT/HCPCS: 36415; 84402; 84403

== ENCOUNTER 2024-08-07 08:59 | Outpatient (REF) | payer MEDICAID, SELFPAY ==
[2024-08-10 03:38] LABS: TS Negative Control Passed; TS Panel A 0; TS Panel B 0; TS Positive Control Passed; TSpotTB Negative (Negative)
== END 2024-08-07 09:00 | disposition home or self-care (01) ==
LOC: HO.CHCLDS 08:59
PROVIDERS: Visit Provider Internal Medicine
DX: Z02.89 Encounter for other administrative examinations (principal); Z11.1 Encounter for screening for respiratory tuberculosis
CPT/HCPCS: 36415; 86481

== ENCOUNTER 2025-08-08 12:58 | Outpatient (REF) | payer MEDICAID, SELFPAY | END 2025-08-08 12:59 | disposition home or self-care (01) | LOC: HO.CHCLDS 12:58 | PROVIDERS: Visit Provider Internal Medicine | DX: Z11.1 Encounter for screening for respiratory tuberculosis (principal); Z02.89 Encounter for other administrative examinations | CPT/HCPCS: 36415; 86481 ==